=== PATIENT | male | born 1980 | race Caucasian/White ===

== ENCOUNTER → 2024-04-10 10:12 | Outpatient (CLI) | payer OTHER, SELFPAY | PROVIDERS: PCP Family Medicine; Referring Provider Nurse Practitioner Family; Visit Provider Nurse Practitioner Family | DX: R05.1 Acute cough (principal) | CPT/HCPCS: 87070 ==

== ENCOUNTER → 2024-04-10 10:37 | Outpatient (CLI) | payer OTHER, SELFPAY ==
[2024-04-10 12:36] LABS: Add Manual Diff / Slide Review NO; Basophils Absolute Auto 0 /uL (0-100); Basophils Percent Auto 0.3 % (0-2); Eosinophils Absolute Auto 200 /uL (0-450); Eosinophils Percent Auto 1.9 % (2-4); Hematocrit 40.8 % (41-53); Hemoglobin 13.7 g/dL (13.5-17.5); Lymphocytes Absolute Auto 1900 /uL (1100-4500); Lymphocytes Percent Auto 16.7 % (25-40); Mean Corpuscular HGB Conc 33.5 % (30-36); Mean Corpuscular Hemoglobin 30.7 PG (26-34); Mean Corpuscular Volume 91.7 fL (80-100); Monocytes Absolute Auto 1000 /uL (0-900); Monocytes Percent Auto 8.9 % (3-14); Neutrophils Absolute Auto 8000 /uL (1500-7000); Neutrophils Percent Auto 72.2 % (50-75); Platelet Count 251 X10^3/uL (150-400); Red Blood Cell Count 4.45 X10^6/uL (4.5-5.9); Red Cell Distribution Width 13.3 % (11.6-14.8); White Blood Cell Count 11.1 X10^3/uL (4.5-11.0)
[2024-04-10 12:49] LABS: Alanine Aminotransferase 33 IU/L (<50); Albumin 4.6 g/dL (3.5-5.0); Albumin Globulin Ratio 1.7 (1.0-2.8); Alkaline Phosphatase 85 U/L (38-126); Aspartate Aminotransferase 41 IU/L (17-59); BUN Creatinine Ratio 21.2 (6-22); Bilirubin Total 0.6 mg/dL (0.2-1.3); Blood Urea Nitrogen 18 mg/dL (9-20); Calcium 9.7 mg/dL (8.4-10.2); Carbon Dioxide 28 mmol/L (22-32); Chloride 105 mmol/L (98-107); Cholesterol 204 mg/dL (140-199); Estimated Glomerular Filt Rate > 60 mL/min (>60); Globulin 2.7 g/dL (1.7-4.1); Glucose 85 mg/dL (70-100); HDL Cholesterol 74 mg/dL (40-60); HEMOLYSIS < 15 (0-50); LDL Cholesterol Calculated 118 mg/dL (<100); Potassium 5.1 mmol/L (3.4-5.1); Sodium 139 mmol/L (137-145); Total Protein 7.3 g/dL (6.3-8.2); Triglycerides 62 mg/dL (35-150)
[2024-04-10 13:24] LABS: Ferritin 132 ng/mL (18-464)
[2024-04-10 13:38] LABS: Vitamin B12 Reflex MMA if <400 258 pg/mL (239-931)
[2024-04-10 15:30] LABS: HIV 1 & 2 Ab/Ag 4th Gen Combo NEGATIVE (NEGATIVE); Hep C Virus Ab w/Reflex Quant NEGATIVE s/c (NEGATIVE)
[2024-04-14 00:08] LABS: Methylmalonic Acid,Serum 137 nmol/L (0-378)
== END ==
PROVIDERS: PCP Family Medicine; Referring Provider Family Medicine; Visit Provider Family Medicine
DX: Z13.21 Encounter for screening for nutritional disorder (principal); Z13.9 Encounter for screening, unspecified; R05.1 Acute cough; R20.0 Anesthesia of skin; Z11.59 Encounter for screening for other viral diseases; Z13.220 Encounter for screening for lipoid disorders; E66.9 Obesity, unspecified; Z11.4 Encounter for screening for human immunodeficiency virus [HIV]; F32.A Depression, unspecified
CPT/HCPCS: 36415; 80053; 80061; 82607; 82728; 83921; 85025; 86803; 87070; 87389

== ENCOUNTER → 2024-07-18 09:07 | Outpatient (CLI) | payer OTHER, SELFPAY ==
[2024-07-18 10:46] LABS: Vitamin D 25 Hydroxy (D3) 47.6 ng/mL (30.0-100.0)
[2024-07-18 11:26] LABS: Vitamin B12 Reflex MMA if <400 450 pg/mL (239-931)
== END ==
PROVIDERS: PCP Family Medicine; Referring Provider Family Medicine; Visit Provider Family Medicine
DX: Z13.21 Encounter for screening for nutritional disorder (principal); R20.0 Anesthesia of skin; F32.A Depression, unspecified
CPT/HCPCS: 36415; 82306; 82607

== ENCOUNTER 2024-11-16 14:39 | Emergency (ER) | payer OTHER, SELFPAY ==
[2024-11-16 14:48] VITALS: BP 143/86; PULSE 73; RESP 18; TEMP 37.1; O2SAT 99; BMI 36.5
--- NOTE | 2024-11-16 18:38 | ED.WOUNDLAC ---
HPI - Wound/Laceration <Jonna Dueñas PA-C - Last Filed: 11/16/24 18:46> General Chief Complaint: Wound/Laceration Stated Complaint: injury left hand index finger Time Seen by Provider: 11/16/24 17:07 Source: patient Mode of arrival: Ambulatory History of Present Illness HPI narrative: Mr. Garcia is a very pleasant 44-year-old male presents to the emergency department for a laceration to his left index finger that occurred at approximately 10:00 p.m. last night. Patient states he was using his clean pocket knife to cut through a zip tie when he accidentally cut his left index finger. Patient cleansed the wound at home and applied a piece of skin tape to bring the edges together however today he continued to have bleeding so he came to the ER for further evaluation. His last Tdap was 4 years ago. He denies any pain with range of motion of the finger, no numbness or tingling. No blood thinner use. Related Data Previous Rx's ?Medication ?Instructions ?Recorded clotrimazole 1 % topical cream 1 applic topical BID 4 weeks #90 09/28/24 grams dexmethylphenidate 10 mg tablet 10 mg PO QID #120 tabs 09/28/24 desvenlafaxine succinate 100 mg 100 mg PO DAILY #90 tabs 11/03/24 tablet,extended release 24 hr Allergies Allergy/AdvReac Type Severity Reaction Status Date / Time No Known Drug Allergies Allergy Verified 10/18/24 10:22 Review of Systems <Jonna Dueñas PA-C - Last Filed: 11/16/24 18:46> Review of Systems ROS Unobtainable: All systems reviewed & are unremarkable except as noted in HPI and below Patient History <Jonna Dueñas PA-C - Last Filed: 11/16/24 18:46> Surgical History [place] teeth removed (10/27/96) History of tonsillectomy (06/22/90) Family History Father Depression with anxiety Heart valve disease Hypertension Type 2 diabetes mellitus Kidney failure Grandfather Lewy body dementia Grandmother Breast cancer Aunt Brain cancer Crohn's disease Son Age: 7 Autism Mother Age: 76 Depression with anxiety Hypertension Smoking Status: Never smoker tobacco type: smokeless tobacco Exam <BHARAT Johnson Last Filed: 11/16/24 18:46> Narrative Exam Narrative: GENERAL: 44 year old patient appears stated age. Well-developed patient, in no acute distress. HEAD: Atraumatic. Normocephalic. CARDIOVASCULAR: Regular rate RESPIRATORY: ?Nonlabored respirations. ?Speaking in clear, full sentences. ? NEURO: AOx3. ?Clear speech. ?Moves all 4 extremities appropriately. Sensation intact to light touch distal to the left index finger wound. SKIN: There is an approximately 3 cm linear laceration on the radial aspect of the left 2nd phalanx overlying the MTP region. Laceration is superficial and well approximated. Scant bloody drainage with movement. Initial Vital Signs Initial Vital Signs: Vital Signs Temperature 98.7 F 11/16/24 14:48 Pulse Rate 73 11/16/24 14:48 Respiratory Rate 18 11/16/24 14:48 Blood Pressure 143/86 H 11/16/24 14:48 Pulse Oximetry 99 11/16/24 14:48 Oxygen Delivery Method Room Air 11/16/24 14:48 <Hiral Tejada DO - Last Filed: 11/27/24 19:07> Initial Vital Signs Initial Vital Signs: Vital Signs Temperature 98.7 F 11/16/24 14:48 Pulse Rate 73 11/16/24 14:48 Respiratory Rate 18 11/16/24 14:48 Blood Pressure 143/86 H 11/16/24 14:48 Pulse Oximetry 99 11/16/24 14:48 Oxygen Delivery Method Room Air 11/16/24 14:48 Procedures <BHARAT Johnson Last Filed: 11/16/24 18:46> Laceration Repair Laceration 1: Site: hand (index finger) Side (If applicable): left Size (cm): 3 Description: linear Depth: simple, single layer Pre-repair: wound explored, irrigated extensively and deep structures intact Skin layer closed with: steri-strips Course <BHARAT Johnson Last Filed: 11/16/24 18:46> Vital Signs Vital signs: Vital Signs - 8 hr 11/16/24 14:48 Temperature 98.7 F Pulse Rate 73 Respiratory Rate 18 Blood Pressure 143/86 H Pulse Oximetry 99 Oxygen Delivery Method Room Air <Hiral LuquegersonDO - Last Filed: 11/27/24 19:07> Vital Signs Vital signs: Vital Signs - 8 hr 11/16/24 14:48 Temperature 98.7 F Pulse Rate 73 Respiratory Rate 18 Blood Pressure 143/86 H Pulse Oximetry 99 Oxygen Delivery Method Room Air MDM - Wound/Laceration <Jonna Dueñas PA-C - Last Filed: 11/16/24 18:46> Medical Records Attestation: I reviewed the patient's medical records. MDM Narrative Medical decision making narrative: 44-year-old male presents to the emergency department for a laceration to his left index finger that occurred at approximately 10:00 p.m. last night. Differential diagnosis includes but is not limited to laceration, contaminated wound, etc. On exam patient is in no acute distress, nontoxic-appearing, all vital signs within normal limits. His Tdap is up-to-date within the last 5 years. He has a simple superficial laceration on his left index finger however this did occur yesterday. Index finger and remainder of hand is neurovascularly intact with full range of motion. After shared decision-making with the patient, the wound was extensively cleansed with diluted Betadine, Steri-Strips were then used to approximate the wound and a nonadherent dressing was applied. Discussed proper wound care, signs and symptoms of infection, and ED return precautions. Patient verbalized understanding of all information is agreeable with the plan. He is stable for discharge home. Discharge Plan Departure Patient Disposition: Home Clinical Impression: Finger laceration Qualifiers: Encounter type: initial encounter Finger: index finger Damage to nail status: without damage Foreign body presence: without foreign body Laterality: left Qualified Code(s): S61.211A - Laceration without foreign body of left index finger without damage to nail, initial encounter Instructions: How to Care for a Laceration After Repair Activity Restrictions/Additional Instructions: Dear Radha, Thank you for coming to the emergency department. Today you had a laceration to your left index finger. Because this wound occurred over 12 hours ago, we have used Steri-Strips to close it. They do not need to be removed and we will slowly come off on their own. Avoid using any lotions or ointments as this will break down the adhesive of the Steri-Strips. Please keep the dressing on your wound clean, dry, and intact for the next 24 hours. After this time, you may remove the dressing and gently clean the wound with soap and water, then pat dry. Keep the wound clean and covered. Avoid soaking the wound in any water such as a bath, pool, or the ocean. If you develop any signs of wound infection such as increased redness, pus drainage, streaking redness, or fevers, please return to the ER immediately for evaluation. Please take Ibuprofen (Motrin/Advil) or Acetaminophen (Tylenol) for pain. These are available over the counter. You may take Ibuprofen 600 mg every 8 hours with food for pain. You may also take Acetaminophen 650 mg every 4-6 hours for pain. Do not exceed 3000 mg of Tylenol a day as this can cause liver damage. Do not drink alcohol with either of these medications. Please follow up with your primary care doctor within the next 2-3 days for ER follow-up. (If you do not have a PCP you can call [phone]. ?to schedule an appointment with an [facility] Primary Care Provider) IF YOU DEVELOP ANY NEW OR WORSENING SYMPTOMS, RETURN TO THE ER! Please read the attached instructions, they highlight more specific treatments and interventions for you at home. Thank you for letting me participate in your care, Jonna Dueñas PA-C Prescriptions: No Action clotrimazole 1 % cream 1 applic topical BID 28 Days Qty: 90 1RF dexmethylphenidate 10 mg tablet 10 mg PO QID Qty: 120 0RF desvenlafaxine succinate 100 mg tablet extended release 24 hr 100 mg PO DAILY Qty: 90 1RF Referrals: Florin Mckeon MD [Primary Care Provider, Family Practice] Stand Alone Forms: Patient Portal/API ED Sign-out <Hiral Tejada DO - Last Filed: 11/27/24 19:07> Cosign ED Attending Ramirez Attestation: I was immediately available in the department for consultation.
[2024-11-16 18:50] VITALS: BP 140/85; PULSE 70; RESP 16; O2SAT 100
== END 2024-11-16 18:53 | disposition home or self-care (01) ==
PROVIDERS: Emergency Provider Physician Assistant; PCP Family Medicine
DX: S61.211A Laceration without foreign body of left index finger without damage to nail, initial encounter (principal); W26.0XXA Contact with knife, initial encounter
CPT/HCPCS: 99281

== ENCOUNTER → 2025-03-15 10:00 | Outpatient (CLI) | payer OTHER, SELFPAY ==
[2025-03-16 12:07] LABS: Ur Creatinine Normal (Normal); Ur Specific Gravity Normal (Normal); Urine MDMA Negative (Negative); Urine Methamphetamines Negative (Negative); Urine THC Negative (Negative); Urine Tricyclic Antidepressant Negative (Negative); Urine pH Normal (Normal)
== END ==
PROVIDERS: PCP Family Medicine; Referring Provider Family Medicine; Visit Provider Family Medicine
DX: Z51.81 Encounter for therapeutic drug level monitoring (principal)
CPT/HCPCS: 80305

== ENCOUNTER → 2025-03-31 12:08 | Outpatient (CLI) | payer OTHER, SELFPAY ==
[2025-03-31 12:38] LABS: Hematocrit 38.6 % (41-53); Hemoglobin 13.1 g/dL (13.5-17.5); Mean Corpuscular HGB Conc 33.9 % (30-36); Mean Corpuscular Hemoglobin 31.0 PG (26-34); Mean Corpuscular Volume 91.3 fL (80-100); Platelet Count 263 X10^3/uL (150-400)
[2025-03-31 13:02] LABS: Alanine Aminotransferase 49 IU/L (<50); Albumin 4.4 g/dL (3.5-5.0); Albumin Globulin Ratio 1.7 (1.0-2.8); Alkaline Phosphatase 86 U/L (38-126); Blood Urea Nitrogen 17 mg/dL (9-20); Calcium 9.3 mg/dL (8.4-10.2); Carbon Dioxide 25 mmol/L (22-32); Chloride 109 mmol/L (98-107); Cholesterol 188 mg/dL (140-199); Estimated Glomerular Filt Rate > 60 mL/min (>60); Globulin 2.6 g/dL (1.7-4.1); Glucose 118 mg/dL (70-99); HDL Cholesterol 75 mg/dL (40-60); HEMOLYSIS < 15 (0-50); Hemoglobin A1C% w Est Avg Glu 5.3 % (4.0-6.0); Potassium 5.2 mmol/L (3.4-5.1); Sodium 142 mmol/L (137-145); Total Protein 7.0 g/dL (6.3-8.2); Triglycerides 202 mg/dL (35-150)
[2025-03-31 13:16] LABS: Eosinophils Percent Manual 9.0 % (2-4); Lymphocytes Percent Manual 29.0 % (25-45); Monocytes Percent Manual 8.0 % (2-11); Neutrophils Absolute Manual 3024 /uL (3000-5900); Segmented Neutrophils Percent 54.0 % (38-70); Total Cells Counted 100
[2025-03-31 13:17] LABS: RBC Morphology Normal Morphology
== END ==
PROVIDERS: PCP Family Medicine; Referring Provider Family Medicine; Visit Provider Family Medicine
DX: E66.9 Obesity, unspecified (principal); E78.5 Hyperlipidemia, unspecified; Z13.1 Encounter for screening for diabetes mellitus
CPT/HCPCS: 36415; 80053; 80061; 83036; 85025